=== PATIENT | female | born 1970 | race Caucasian/White ===

== ENCOUNTER 2020-01-27 10:29 | Day surgery (SDC) | payer BC ==
[~2020-01-27] VITALS: Ht 165.1 cm; Wt 73.4 kg
[~2020-01-27 10:29] MED LIST: CEPH500 PO; CONEST.625 VAG; CYCL10 PO; HYDACE5 PO; IBUP600 PO; RXSULTRIDS PO; SULTRIDS PO
[2020-01-27] MEDS ORDERED: EUTHYROX50 MCG PO (11:23)
--- NOTE | 2020-01-27 11:43 | NUR ---
01/27/20 1143 Lesley Huynh RN UPDATED PT REGARDING THE DELAY IN HER PROCEDURE DUE TO ANESTHESIOLOGIST BEING DELAYED ON ANOTHER CASE. RN NOTIFIED PT'S MOM PER REQUEST. CALL LIGHT IN REACH. WARM BLANKETS OFFERED.
== END 2020-01-27 14:40 | disposition home or self-care (01) ==
LOC: ORSCSDS 10:29
PROVIDERS: Podiatrist Foot & Ankle Surgery
PROC: 0QBN0ZZ Excision of Right Metatarsal, Open Approach (ICD-10-PCS; principal; 2020-01-27 12:00)
DX: M20.5X1 Other deformities of toe(s) (acquired), right foot (principal); M72.2 Plantar fascial fibromatosis
CPT/HCPCS: J0171; J0690; J1100; J2250; J2405; J2704; J3010; J7120